=== PATIENT | male | born 1980 | race African-American/Black ===

== ENCOUNTER 2016-12-02 18:38 | Emergency (ER) | payer MEDICAID ==
[~2016-12-02] VITALS: Ht 182.9 cm; Wt 83.0 kg
[2016-12-02] MEDS ORDERED: MORPHINE SULFATE 4 MG/ML CPJ (NOT FOR IM USE) IV STA (20:26)
[2016-12-02] MEDS ORDERED: ONDANSETRON HCL 4MG/2ML VIAL IV STA (20:26)
[2016-12-02] MEDS ORDERED: SODIUM CHLORIDE 0.9% 1,000 ML IV ONE (20:26)
[2016-12-02 21:16] LABS: BASOPHILS % 0.5 % (0.0-2.0); EOSINOPHILS % 0.1 % (0.0-5.0); HEMOGLOBIN. 15.2 g/dL (14.0-18.0); LYMPHOCYTES % 8.5 % (20.0-50.0); MEAN CORPUSCULAR VOLUME 89.9 fL (80.0-94.0); MEAN PLATELET VOLUME 8.4 fl (7.4-10.4); MONOCYTES % 4.8 % (2.0-8.0); NEUTROPHILS % 86.1 % (40.0-76.0); PLATELET 263 x1000/uL (130-400); RED CELL DISTRIBUTION WIDTH 13.2 % (11.6-14.6)
[2016-12-02 21:27] LABS: CARBON DIOXIDE 27 mEq/L (21-32); CHLORIDE 106 mEq/L (98-107)
[2016-12-02 22:11] LABS: CLARITY URINE CLOUDY (CLEAR); COLOR URINE YELLOW (YELLOW); GLUCOSE URINE NEGATIVE (NEGATIVE); KETONES URINE 2+ (NEGATIVE); LEUKOCYTE ESTERASE URINE NEGATIVE (NEGATIVE); NITRITE URINE NEGATIVE (NEGATIVE); OCCULT BLOOD URINE NEGATIVE (NEGATIVE); PH URINE >=9.0 (4.5-8.0); PROTEIN URINE NEGATIVE (NEGATIVE); SPECIFIC GRAVITY URINE 1.015 (1.005-1.030)
[2016-12-02] MEDS ORDERED: VISCOUS LIDOCAINE 2% 15 ML UDC PO STA (23:11)
[2016-12-02] MEDS ORDERED: MAGNESIUM/ALUMINUM HYDROXIDE/SIMETHICONE 30ML UDC PO STA (23:11)
[2016-12-02 23:50] VITALS: BP 120/80
== END 2016-12-02 23:54 | disposition home or self-care (01) ==
LOC: ER 19:12
DX: R10.13 Epigastric pain (principal); R11.2 Nausea with vomiting, unspecified; R51 Headache; J45.909 Unspecified asthma, uncomplicated
CPT/HCPCS: 36415; 80053; 81001; 83690; 85025; 96374; 96375; 99284; J2270; J2405; J7030; Z7610